=== PATIENT | female | born 1930 | race Caucasian/White ===

== ENCOUNTER 2018-01-20 13:04 | Emergency (ER) | payer OTHER, MEDICARE ==
[~2018-01-20] VITALS: Ht 165.1 cm; Wt 49.9 kg
[2018-01-20] MEDS ORDERED: [UNRECOGNIZED DRUG - REMARK] (13:16)
[2018-01-20] MEDS ORDERED: TDAP DIPH,PERTUSS,TET VAC/PF 0.5 ML DISP.SYRIN IM ONE ×2 (13:30→13:47)
[2018-01-20] MEDS ORDERED: LIDOCAINE HCL 2% 20 ML VIAL TP ONE (13:30)
[2018-01-20] MEDS ORDERED: CLONIDINE HCL 0.2 MG TABLET PO ONE (13:45)
--- NOTE | 2018-01-20 13:45 | NUR ---
PATIENT DENIES ANY CP NO SOB
[2018-01-20] MEDS ORDERED: CLONIDINE HCL 0.2 MG TABLET ONE (13:47)
[2018-01-20 13:50] VITALS: BP 204/118
--- NOTE | 2018-01-20 14:38 | NUR ---
Patient discharged to home in stable conditon. Written and verbal after care instructions given to patient. Patient verbalizes understanding of instructions.
== END 2018-01-20 14:43 | disposition home or self-care (01) ==
LOC: ER 13:06
DX: S01.112A Laceration without foreign body of left eyelid and periocular area, initial encounter (principal); I10 Essential (primary) hypertension; Z79.899 Other long term (current) drug therapy; W18.40XA Slipping, tripping and stumbling without falling, unspecified, initial encounter; Y93.89 Activity, other specified; Y92.89 Other specified places as the place of occurrence of the external cause; Y99.8 Other external cause status
CPT/HCPCS: 70486; 90715; A4217; A4663